=== PATIENT | male | born 1995 ===

== ENCOUNTER 2017-04-20 17:09 | Emergency (ER) | payer OTHER ==
[2017-04-20] MEDS ORDERED: Sodium Chloride 0.9% 1,000 ML IV STA ×2 (17:21→19:19)
[2017-04-20 17:49] LABS: BASO # 0.1 K/uL (0.0-0.2); BASO % 0.4 % (0.0-2.0); EOS # 0.1 K/uL (0.0-0.7); EOS % 0.5 % (0.0-4.0); HEMOGLOBIN 17.8 g/dL (12.0-18.0); LYMPH # 2.8 K/uL (1.0-4.3); LYMPH % 15.5 % (20.0-40.0); MEAN CELL VOLUME 86.7 fl (80.0-94.0); MEAN CORPUSCULAR HEMOGLOBIN 29.4 pg (27.0-31.0); MEAN CORPUSCULAR HGB CONC 33.9 g/dL (33.0-37.0); MONO # 1.3 K/uL (0.0-0.8); MONO % 7.5 % (0.0-10.0); NEUT # 13.7 K/uL (1.8-7.0); NEUT % 76.1 % (50.0-75.0); NRBC % 1.1 % (0.0-0.0); RBC 6.08 Mil/uL (4.40-5.90); RED CELL DISTRIBUTION WIDTH 13.3 % (11.5-14.5); WHITE BLOOD COUNT 17.9 K/uL (4.8-10.8)
[2017-04-20 18:19] LABS: CALCIUM 10.8 mg/dL (8.4-10.2); GFR AFRICAN-AMERICAN 33; GFR NON-AFRICAN AMERICAN 27
[2017-04-20 18:34] LABS: ALB/GLOB RATIO 1.2 (1.0-2.1); ALBUMIN 5.7 g/dL (3.5-5.0); ALT/SGPT 44 U/L (21-72); AST/SGOT 47 U/L (17-59); BLOOD UREA NITROGEN 39 mg/dl (9-20)
--- NOTE | 2017-04-20 18:55 | ED PDOC ---
HPI: Psych/Substance Abuse Time Seen by Provider: 04/20/17 17:21 Chief Complaint (Nursing): Substance Abuse Chief Complaint (Provider): hes withdrawing from heroin History Per: Patient, Family, [employer] Sales Engineer History/Exam Limitations: no limitations Onset/Duration Of Symptoms: Days (4), Gradual Current Symptoms Are (Timing): Still Present Modifying Factor(s): Narcotics, Cocaine Severity: Severe Associated Symptoms: Anxiety. denies: Agitation, Depression, Paranoia, Suicidal Thoughts Additional Complaint(s): 21yo male arrives with brother who states patient is a heroin addict who recently returned from [facility] where he was attending to family matters for 4 months and experiences relapse in heroin addiction. Brother thinks also using cocaine. Been in [place], last heroin use 5 days ago. Experiencing significant vomiting, restlessness, body aches. Denies suicidal thoughts or hallucinations. No alcohol abuse. Past Medical History Reviewed: Historical Data, Nursing Documentation, Vital Signs Vital Signs: Last Vital Signs Temp 98 F 04/20/17 17:12 Pulse 77 04/20/17 18:48 Resp 16 04/20/17 18:48 BP 145/102 H 04/20/17 18:48 Pulse Ox 99 04/20/17 18:48 - Medical History PMH: Denies: Chronic Kidney Disease Other PMH: substance abuse - Family History Family History: States: Unknown Family Hx - Social History Current smoker - smoking cessation education provided: Yes Alcohol: None Drugs: Cocaine, Opiates - Immunization History Hx Tetanus Toxoid Vaccination: No Hx Influenza Vaccination: No Hx Pneumococcal Vaccination: No - Home Medications Home Medications: Ambulatory Orders Medication Instructions Recorded DiphenhydrAMINE [Benadryl] 25 mg PO Q4H PRN #30 cap 09/10/16 Ibuprofen [Advil] 400 mg PO Q6H PRN 09/10/16 Ibuprofen [Motrin] 600 mg PO Q8 #30 tab 09/10/16 Loperamide [Imodium] 2 mg PO PRN PRN #10 cap 09/10/16 Ondansetron ODT [Zofran ODT] 1 odt PO BID PRN #6 odt 09/10/16 Ondansetron ODT [Zofran ODT] 4 mg PO QID PRN #20 odt 09/11/16 - Allergies Allergies/Adverse Reactions: Allergies Allergy/AdvReac Type Severity Reaction Status Date / Time No Known Allergies Allergy Verified 09/10/16 23:44 Review of Systems Constitutional: Negative for: Fever, Chills ENT: Negative for: Throat Pain, Throat Swelling Respiratory: Negative for: Cough, Shortness of Breath Gastrointestinal: Positive for: Nausea, Vomiting, Diarrhea. Negative for: Abdominal Pain Genitourinary Male: Negative for: Dysuria Musculoskeletal: Negative for: Neck Pain Skin: Negative for: Rash, Lesions, Jaundice Neurological: Positive for: Headache, Dizziness. Negative for: Weakness, Numbness Psych: Positive for: Anxiety. Negative for: Psychosis, Suicidal ideation Physical Exam - Reviewed Nursing Documentation Reviewed: Yes Vital Signs Reviewed: Yes - Physical Exam Appears: Positive for: Well, Non-toxic, Uncomfortable (+vomiting) Head Exam: Positive for: ATRAUMATIC, NORMAL INSPECTION, NORMOCEPHALIC Skin: Positive for: Normal Color, Warm, DRY Eye Exam: Positive for: EOMI, Normal appearance, PERRL ENT: Positive for: Normal ENT Inspection Neck: Positive for: Normal, Painless ROM Cardiovascular/Chest: Positive for: Regular Rate, Rhythm Respiratory: Positive for: CNT, Normal Breath Sounds Gastrointestinal/Abdominal: Positive for: Normal Exam, Bowel Sounds, Soft. Negative for: Tenderness Back: Positive for: Normal Inspection Extremity: Positive for: Normal ROM, Other (no erythema or evidence cellulitic track christie) Neurologic/Psych: Positive for: Alert, Oriented. 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 Labs ordered IVF bolus, zofran and clonidine ordered labs reviewed, reveal elevated WBC and elevated renal indices c/w dehydration and acute renal failure To admit hospitalist given need for IVF and trending of kidney function Disposition - Clinical Impression Clinical Impression: Opioid withdrawal, Acute renal failure, Dehydration - Patient ED Disposition Is Patient to be Admitted: Yes Counseled Patient/Family Regarding: Studies Performed, Diagnosis - Disposition Forms: Thermalin Diabetes (Estonian) - Pt Status Changed To: Hospital Disposition Of: Observation - POA Present On Arrival: None
[2017-04-20] MEDS ORDERED: Morphine 4 MG/ML VIAL ONE (19:15)
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
[2017-04-20] MEDS ORDERED: Sodium Chloride 0.45% 1,000 ML IV SCH (21:00)
[2017-04-20 22:00] VITALS: O2SAT 100
[2017-04-20 23:30] VITALS: BP 127/70; PULSE 68; RESP 20; TEMP 98.2
--- NOTE | 2017-04-21 09:23 | RAD ---
HISTORY: ro infiltrate COMPARISON: No prior. FINDINGS: LUNGS: No active pulmonary disease. PLEURA: No significant pleural effusion identified, no pneumothorax apparent. CARDIOVASCULAR: Normal. OSSEOUS STRUCTURES: No significant abnormalities. VISUALIZED UPPER ABDOMEN: Normal. OTHER FINDINGS: None. IMPRESSION: No acute cardiopulmonary disease appreciated.
--- NOTE | 2017-04-22 11:21 | CARD ---
APPROVED REPORT EKG Measurement Heart [id number] MA [id number] <Conclusion> Sinus bradycardia with sinus arrhythmia Otherwise normal ECG
== END 2017-04-20 23:00 | disposition home or self-care (01) ==
LOC: H.ER 17:09 → H.ERHOLD 19:19 → UNDOADMIN 19:19 → H.ER 23:00
DX: F11.23 Opioid dependence with withdrawal (principal); N17.9 Acute kidney failure, unspecified
CPT/HCPCS: 71045; 80053; 80320; 82550; 85025; 93005; 96360; 99284; J2270; J2405; J7040

== ENCOUNTER 2017-04-21 21:30 | Emergency (ER) | payer OTHER ==
[2017-04-21 22:02] VITALS: BP 148/90; PULSE 84; RESP 18; TEMP 98.4; O2SAT 99
[2017-04-21] MEDS ORDERED: Sodium Chloride 0.9% 1,000 ML IV STA (22:50)
[2017-04-21 23:25] LABS: BASO % 0.2 % (0.0-2.0); EOS % 0.2 % (0.0-4.0); HEMOGLOBIN 14.5 g/dL (12.0-18.0); LYMPH # 3.9 K/uL (1.0-4.3); LYMPH % 30.6 % (20.0-40.0); MEAN CELL VOLUME 86.6 fl (80.0-94.0); MEAN CORPUSCULAR HEMOGLOBIN 29.2 pg (27.0-31.0); MEAN CORPUSCULAR HGB CONC 33.8 g/dL (33.0-37.0); MEAN PLATELET VOLUME 8.3 fl (7.2-11.7); MONO % 7.8 % (0.0-10.0); NEUT # 7.9 K/uL (1.8-7.0); NEUT % 61.2 % (50.0-75.0); NRBC % 0.1 % (0.0-0.0); RBC 4.95 Mil/uL (4.40-5.90); RED CELL DISTRIBUTION WIDTH 12.9 % (11.5-14.5); WHITE BLOOD COUNT 12.8 K/uL (4.8-10.8)
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
[2017-04-21 23:46] LABS: ALB/GLOB RATIO 1.4 (1.0-2.1); ALBUMIN 4.4 g/dL (3.5-5.0); ALT/SGPT 48 U/L (21-72); AST/SGOT 28 U/L (17-59); BLOOD UREA NITROGEN 14 mg/dl (9-20); CALCIUM 9.5 mg/dL (8.4-10.2); GFR AFRICAN-AMERICAN > 60; GFR NON-AFRICAN AMERICAN > 60; LIPASE 320 U/L (23-300)
[2017-04-22] MEDS ORDERED: Potassium Chloride 20 mEq ER Tab PO ONE (00:31)
[2017-04-22] MEDS: Potassium CL 10 MEQ/50 ML 50 ML IVPB SCH ×2 (00:41→01:48)
[2017-04-22] MEDS ORDERED: Potassium CL 10 MEQ/50 ML 50 ML ONE (01:32)
== END 2017-04-22 03:46 | disposition home or self-care (01) ==
LOC: H.ER 21:30
DX: F11.23 Opioid dependence with withdrawal (principal)
CPT/HCPCS: 80053; 82550; 83690; 83735; 85025; 96374; 96375; 99283; J2405; J3480; J7040

== ENCOUNTER 2017-04-28 22:44 | Emergency (ER) | payer SELFPAY ==
[2017-04-28 23:14] VITALS: BP 136/67; PULSE 87; RESP 16; TEMP 99.6; O2SAT 100
== END 2017-04-29 00:05 | disposition left against medical advice (07) ==
LOC: H.ER 22:44
DX: Z02.89 Encounter for other administrative examinations (principal)

== ENCOUNTER 2017-10-21 09:23 | Emergency (ER) | payer OTHER ==
[2017-10-21 09:31] VITALS: BMI 25.0
[2017-10-21 09:32] VITALS: TEMP 98.3
[2017-10-21 09:37] VITALS: O2SAT 99
[2017-10-21] MEDS: Sodium Chloride 0.9% 1,000 ML IV STA (10:38)
[2017-10-21 11:02] LABS: BASO % 0.1 % (0.0-2.0); HEMOGLOBIN 15.6 g/dL (12.0-18.0); LYMPH # 2.4 K/uL (1.0-4.3); MEAN CELL VOLUME 87.6 fl (80.0-94.0); MEAN CORPUSCULAR HEMOGLOBIN 29.9 pg (27.0-31.0); MEAN CORPUSCULAR HGB CONC 34.2 g/dL (33.0-37.0); MEAN PLATELET VOLUME 8.3 fl (7.2-11.7); MONO # 0.6 K/uL (0.0-0.8); MONO % 4.3 % (0.0-10.0); NEUT # 12.1 K/uL (1.8-7.0); NEUT % 79.6 % (50.0-75.0); NRBC % 0.1 % (0.0-0.0); RBC 5.23 Mil/uL (4.40-5.90); RED CELL DISTRIBUTION WIDTH 13.7 % (11.5-14.5); WHITE BLOOD COUNT 15.3 K/uL (4.8-10.8)
[2017-10-21 11:08] LABS: CALCIUM 10.8 mg/dL (8.4-10.2); GFR AFRICAN-AMERICAN > 60; GFR NON-AFRICAN AMERICAN > 60
[2017-10-21 11:09] LABS: ALB/GLOB RATIO 1.1 (1.0-2.1); ALBUMIN 5.3 g/dL (3.5-5.0); ALT/SGPT 33 U/L (21-72); AST/SGOT 48 U/L (17-59); BLOOD UREA NITROGEN 13 mg/dl (9-20)
--- NOTE | 2017-10-21 11:55 | ED PDOC ---
HPI: Abdomen Time Seen by Provider: 10/21/17 09:54 Chief Complaint (Nursing): GI Problem Chief Complaint (Provider): GI Problem History Per: Patient History/Exam Limitations: no limitations Onset/Duration Of Symptoms: Days (4) Associated Symptoms: Diarrhea Additional Complaint(s): 22 years old male with history of heroin abuse presents to the ED with complaints of withdrawal symptoms from heroin onset 4 days. Patient reports experiencing body pain and diarrhea. PMD: non provided Against Medical Advice - AMA Patient Left Against Medical Advice: The patient declines admission to the hospital and wishes to leave the Emergency Department. This action is against my medical advice. This decision was made with informed refusal. The patient was told that admission to the hospital is necessary. Explanation of the reasons why were discussed. The risks of leaving were explained to the patient and include, but are not limited to, worsening of known or currently unknown conditions, permanent disability and from undiagnosed or untreated conditions. The patient has the capacity to make this informed decision and understands my explanation of the current medical problem and risks of leaving. The patient voluntarily accepts these risks and signed an AMA form documenting our conversation. The patient was given the opportunity to ask questions and reconsider. The patient was encouraged to return to the Emergency Department at any time for further care. 10/21/17 1121 Past Medical History Reviewed: Historical Data, Nursing Documentation, Vital Signs Vital Signs: Last Vital Signs Temp 98.3 F 10/21/17 09:35 Pulse 88 10/21/17 11:28 Resp 18 10/21/17 11:28 BP 128/69 10/21/17 11:28 Pulse Ox 99 10/21/17 12:00 - Medical History PMH: No Chronic Diseases Denies: Chronic Kidney Disease - Surgical History Surgical History: No Surg Hx - Family History Family History: States: Unknown Family Hx - Social History Current smoker - smoking cessation education provided: Yes (cigarettes) Alcohol: Social Drugs: Opiates (Heroin) - Immunization History Hx Tetanus Toxoid Vaccination: No Hx Influenza Vaccination: No Hx Pneumococcal Vaccination: No - Home Medications Home Medications: Ambulatory Orders Medication Instructions Recorded DiphenhydrAMINE [Benadryl] 25 mg PO Q4H PRN #30 cap 09/10/16 Ibuprofen [Advil] 400 mg PO Q6H PRN 09/10/16 Ibuprofen [Motrin] 600 mg PO Q8 #30 tab 09/10/16 Ondansetron ODT [Zofran ODT] 1 odt PO BID PRN #6 odt 09/10/16 Ondansetron ODT [Zofran ODT] 4 mg PO QID PRN #20 odt 09/11/16 Loperamide [Imodium] 2 mg PO PRN PRN #10 cap 04/22/17 Ondansetron ODT [Zofran ODT] 4 mg PO Q8 PRN #12 odt 04/22/17 cloNIDine 0.3 mg/24 hr 0.3 mg TD DAILY #7 tdm 04/22/17 [catapres-TTS3 0.3 mg/24 hr] - Allergies Allergies/Adverse Reactions: Allergies Allergy/AdvReac Type Severity Reaction Status Date / Time No Known Allergies Allergy Verified 09/10/16 23:44 Review of Systems ROS Statement: Except As Marked, All Systems Reviewed And Found Negative Gastrointestinal: Positive for: Diarrhea Physical Exam - Reviewed Nursing Documentation Reviewed: Yes Vital Signs Reviewed: Yes - Physical Exam Appears: Positive for: Non-toxic, No Acute Distress Head Exam: Positive for: ATRAUMATIC, NORMOCEPHALIC Skin: Positive for: Normal Color, Warm, Dry Eye Exam: Positive for: Normal appearance, EOMI, PERRL Neck: Positive for: Normal, Painless ROM, Supple Cardiovascular/Chest: Positive for: Regular Rate, Rhythm, Tachycardia. Negative for: Murmur Respiratory: Positive for: Normal Breath Sounds. Negative for: Respiratory Distress Gastrointestinal/Abdominal: Positive for: Normal Exam, Soft. Negative for: Tenderness Back: Positive for: Normal Inspection Extremity: Positive for: Normal ROM. Negative for: Tenderness, Pedal Edema Neurologic/Psych: Positive for: Alert, Oriented (x3) - Laboratory Results Result Diagrams: 10/21/17 10:40 10/21/17 10:40 - ECG O2 Sat by Pulse Oximetry: 99 (RA) Pulse Ox Interpretation: Normal Medical Decision Making Medical Decision Making: Time: 1019 Initial Plan: --Alcohol Serum --CMP --Drug Screen --Urine dipstick --CBC --NaCl 1,000 ml --Urinalysis 1121 Patient is leaving AMA. ----- Scribe Attestation: Documented by Carmela Lerma, acting as a scribe for Nikki Kwon MD. Provider Scribe Attestation: All medical record entries made by the Scribe were at my direction and personally dictated by me. I have reviewed the chart and agree that the record accurately reflects my personal performance of the history, physical exam, medical decision making, and the department course for this patient. I have also personally directed, reviewed, and agree with the discharge instructions and disposition. Disposition - Clinical Impression Clinical Impression: Opioid withdrawal - Disposition Disposition: Against Medical Advice Disposition Time: 11:25 Condition: UNKNOWN Forms: [employer]ely [employer] (Syriac)
[2017-10-21 12:29] VITALS: BP 128/69; PULSE 88; RESP 18
== END 2017-10-21 11:30 | disposition left against medical advice (07) ==
LOC: H.ER 09:23
DX: F11.23 Opioid dependence with withdrawal (principal); R19.7 Diarrhea, unspecified; F17.210 Nicotine dependence, cigarettes, uncomplicated
CPT/HCPCS: 80053; 80320; 82948; 85025; 99283; J7030

== ENCOUNTER 2017-10-25 14:43 | Emergency (ER) | payer OTHER ==
[2017-10-25 14:55] VITALS: RESP 18; TEMP 98; O2SAT 98
[2017-10-25 14:56] VITALS: BMI 24.2
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
[2017-10-25] MEDS ORDERED: Sodium Chloride 0.9% 1,000 ML IV STA (16:15)
[2017-10-25 16:39] LABS: BASO % 0.4 % (0.0-2.0); EOS % 0.3 % (0.0-4.0); HEMOGLOBIN 14.8 g/dL (12.0-18.0); LYMPH # 3.3 K/uL (1.0-4.3); MEAN CELL VOLUME 85.7 fl (80.0-94.0); MEAN CORPUSCULAR HEMOGLOBIN 30.1 pg (27.0-31.0); MEAN CORPUSCULAR HGB CONC 35.1 g/dL (33.0-37.0); MEAN PLATELET VOLUME 8.3 fl (7.2-11.7); MONO # 0.8 K/uL (0.0-0.8); MONO % 7.7 % (0.0-10.0); NEUT # 6.8 K/uL (1.8-7.0); NEUT % 61.6 % (50.0-75.0); NRBC % 0.1 % (0.0-0.0); RBC 4.9 Mil/uL (4.40-5.90); RED CELL DISTRIBUTION WIDTH 13.2 % (11.5-14.5); WHITE BLOOD COUNT 11.1 K/uL (4.8-10.8)
[2017-10-25 16:46] LABS: INR 1.1 (0.9-1.2); PARTIAL THROMBOPLASTIN TIME 25.1 Seconds (25.6-37.1)
[2017-10-25 16:51] LABS: GRANULAR CAST 5 /lpf (0-1); SQUAMOUS EPITHIAL < 1 /hpf (0-5); URINE BACTERIA RARE (<OCC); URINE BILIRUBIN NEGATIVE (NEGATIVE); URINE BLOOD NEGATIVE (NEGATIVE); URINE CLARITY CLOUDY (Clear); URINE COLOR YELLOW (YELLOW); URINE GLUCOSE (UA) NEG (Normal); URINE LEUKOCYTE ESTERASE NEG Leu/uL (Negative); URINE PROTEIN 30 mg/dL (NEGATIVE); URINE UROBILINOGEN 0.2-1.0 mg/dL (0.2-1.0)
[2017-10-25 16:54] LABS: ALB/GLOB RATIO 1.3 (1.0-2.1); ALBUMIN 4.7 g/dL (3.5-5.0); ALT/SGPT 64 U/L (21-72); AST/SGOT 37 U/L (17-59); BLOOD UREA NITROGEN 16 mg/dl (9-20); CALCIUM 9.6 mg/dL (8.4-10.2); GFR NON-AFRICAN AMERICAN > 60; LIPASE 286 U/L (23-300)
[2017-10-25] MEDS ORDERED: Potassium Chloride 20 mEq ER Tab PO STA (16:56)
[2017-10-25] MEDS ORDERED: Iohexol 300 100 ML IJ ONE (17:05)
[2017-10-25] MEDS ORDERED: Sodium Chloride 0.9% 0 ML IV ONE (17:06)
[2017-10-25 17:26] LABS: OPIATES, UR NEGATIVE (NEGATIVE)
[2017-10-25 17:28] LABS: BARBITURATES, UR NEGATIVE (NEGATIVE); BENZODIAZEPINES, UR POSITIVE (NEGATIVE); PHENCYCLIDINE, UR NEGATIVE (NEGATIVE)
[2017-10-25 18:11] VITALS: BP 140/90; PULSE 80
== END 2017-10-25 17:30 | disposition left against medical advice (07) ==
LOC: H.ER 14:43
DX: R10.9 Unspecified abdominal pain (principal)

== ENCOUNTER 2017-10-26 04:34 | Emergency (ER) | payer OTHER ==
[2017-10-26 04:35] VITALS: BMI 24.2
[2017-10-26] MEDS ORDERED: Sodium Chloride 0.9% 1,000 ML IV STA (05:22)
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
[2017-10-26 06:07] LABS: BASO % 0.2 % (0.0-2.0); EOS % 0.4 % (0.0-4.0); LYMPH # 3.2 K/uL (1.0-4.3); LYMPH % 26.9 % (20.0-40.0); MEAN CELL VOLUME 85.7 fl (80.0-94.0); MEAN CORPUSCULAR HEMOGLOBIN 29.9 pg (27.0-31.0); MEAN CORPUSCULAR HGB CONC 34.8 g/dL (33.0-37.0); MEAN PLATELET VOLUME 8.6 fl (7.2-11.7); MONO # 0.9 K/uL (0.0-0.8); MONO % 7.4 % (0.0-10.0); NEUT # 7.6 K/uL (1.8-7.0); NEUT % 65.1 % (50.0-75.0); RBC 4.68 Mil/uL (4.40-5.90); RED CELL DISTRIBUTION WIDTH 12.7 % (11.5-14.5); WHITE BLOOD COUNT 11.7 K/uL (4.8-10.8)
[2017-10-26 06:16] LABS: ALB/GLOB RATIO 1.3 (1.0-2.1); ALBUMIN 4.4 g/dL (3.5-5.0); ALT/SGPT 55 U/L (21-72); AST/SGOT 37 U/L (17-59); BLOOD UREA NITROGEN 15 mg/dl (9-20); CALCIUM 9.4 mg/dL (8.4-10.2); GFR AFRICAN-AMERICAN > 60; GFR NON-AFRICAN AMERICAN > 60; LIPASE 291 U/L (23-300)
[2017-10-26] MEDS ORDERED: Potassium Chloride 20 mEq ER Tab PO ONE (06:18)
[2017-10-26 06:21] LABS: URINE BILIRUBIN NEGATIVE (NEGATIVE); URINE BLOOD NEGATIVE (NEGATIVE); URINE CLARITY CLOUDY (Clear); URINE COLOR YELLOW (YELLOW); URINE GLUCOSE (UA) NEG (Normal); URINE LEUKOCYTE ESTERASE NEG Leu/uL (Negative); URINE PROTEIN 30 mg/dL (NEGATIVE)
[2017-10-26 06:38] LABS: OPIATES, UR NEGATIVE (NEGATIVE)
[2017-10-26 06:48] VITALS: BP 133/86; PULSE 88; RESP 19; TEMP 98.2
[2017-10-26 06:58] VITALS: O2SAT 97
[2017-10-26 07:03] LABS: BARBITURATES, UR NEGATIVE (NEGATIVE); BENZODIAZEPINES, UR POSITIVE (NEGATIVE); PHENCYCLIDINE, UR NEGATIVE (NEGATIVE)
== END 2017-10-26 06:48 | disposition home or self-care (01) ==
LOC: H.ER 04:34
DX: F11.23 Opioid dependence with withdrawal (principal); F17.200 Nicotine dependence, unspecified, uncomplicated
CPT/HCPCS: 80053; 80324; 80345; 80346; 80349; 80353; 80358; 80361; 81003; 83690; 83992; 85025; 96374; 96375; 99283; J2405; J7030

== ENCOUNTER 2017-10-27 03:47 | Emergency (ER) | payer OTHER ==
[2017-10-27 03:47] VITALS: BMI 24.2
[2017-10-27] MEDS ORDERED: Iohexol 240 (50 ml) PO ONE (04:39)
[2017-10-27] MEDS ORDERED: Iohexol 240 (50 ml) ONE (05:02)
[2017-10-27 05:07] LABS: BASO % 0.4 % (0.0-2.0); EOS # 0.1 K/uL (0.0-0.7); EOS % 0.8 % (0.0-4.0); HEMOGLOBIN 13.8 g/dL (12.0-18.0); LYMPH # 3.2 K/uL (1.0-4.3); LYMPH % 30.7 % (20.0-40.0); MEAN CELL VOLUME 86.8 fl (80.0-94.0); MEAN CORPUSCULAR HEMOGLOBIN 30.3 pg (27.0-31.0); MEAN CORPUSCULAR HGB CONC 34.9 g/dL (33.0-37.0); MEAN PLATELET VOLUME 8.7 fl (7.2-11.7); MONO # 0.7 K/uL (0.0-0.8); MONO % 7.1 % (0.0-10.0); NEUT # 6.4 K/uL (1.8-7.0); RBC 4.56 Mil/uL (4.40-5.90); RED CELL DISTRIBUTION WIDTH 12.9 % (11.5-14.5); WHITE BLOOD COUNT 10.5 K/uL (4.8-10.8)
[2017-10-27 05:14] LABS: ALB/GLOB RATIO 1.3 (1.0-2.1); ALBUMIN 4.2 g/dL (3.5-5.0); ALT/SGPT 49 U/L (21-72); AST/SGOT 26 U/L (17-59); BLOOD UREA NITROGEN 7 mg/dl (9-20); CALCIUM 9.4 mg/dL (8.4-10.2); GFR AFRICAN-AMERICAN > 60; GFR NON-AFRICAN AMERICAN > 60; LIPASE 318 U/L (23-300)
[2017-10-27 05:30] LABS: SQUAMOUS EPITHIAL < 1 /hpf (0-5); URINE BACTERIA OCC (<OCC); URINE BILIRUBIN NEGATIVE (NEGATIVE); URINE BLOOD NEGATIVE (NEGATIVE); URINE CLARITY CLOUDY (Clear); URINE COLOR AMBER (YELLOW); URINE GLUCOSE (UA) NEG (Normal); URINE LEUKOCYTE ESTERASE NEG Leu/uL (Negative); URINE PROTEIN 30 mg/dL (NEGATIVE)
[2017-10-27 05:45] LABS: OPIATES, UR NEGATIVE (NEGATIVE)
[2017-10-27 05:48] LABS: BARBITURATES, UR NEGATIVE (NEGATIVE); BENZODIAZEPINES, UR POSITIVE (NEGATIVE); PHENCYCLIDINE, UR NEGATIVE (NEGATIVE)
[2017-10-27 06:01] VITALS: BP 132/92; PULSE 88; RESP 18; TEMP 98.6; O2SAT 100
--- NOTE | 2017-10-27 06:14 | ED PDOC ---
HPI: Abdomen Time Seen by Provider: 10/27/17 04:19 Chief Complaint (Nursing): Abdominal Pain Chief Complaint (Provider): Abdominal Pain History Per: Patient History/Exam Limitations: no limitations Additional Complaint(s): Patient is a 22 y/o male with a history of heroin abuse who presents to the ED complaining of diffuse abdominal pain with more than 10 episodes of associated vomiting and watery diarrhea. Patient admits to using heroin 5 days ago in [facility]. Of note this is the patient's 3rd visit for the same complain. He denies any fever chills or urinary symptoms. Past Medical History Reviewed: Historical Data, Nursing Documentation, Vital Signs Vital Signs: Last Vital Signs Temp 98.6 F 10/27/17 06:00 Pulse 88 10/27/17 06:00 Resp 18 10/27/17 06:00 BP 132/92 H 10/27/17 06:00 Pulse Ox 100 10/27/17 06:18 - Medical History PMH: Denies: Chronic Kidney Disease - Surgical History Surgical History: No Surg Hx - Family History Family History: States: Unknown Family Hx - Social History Drugs: Opiates (heroin) - Immunization History Hx Tetanus Toxoid Vaccination: No Hx Influenza Vaccination: No Hx Pneumococcal Vaccination: No - Home Medications Home Medications: Ambulatory Orders Medication Instructions Recorded DiphenhydrAMINE [Benadryl] 25 mg PO Q4H PRN #30 cap 09/10/16 Ibuprofen [Advil] 400 mg PO Q6H PRN 09/10/16 Ibuprofen [Motrin] 600 mg PO Q8 #30 tab 09/10/16 Ondansetron ODT [Zofran ODT] 1 odt PO BID PRN #6 odt 09/10/16 Ondansetron ODT [Zofran ODT] 4 mg PO QID PRN #20 odt 09/11/16 Loperamide [Imodium] 2 mg PO PRN PRN #10 cap 04/22/17 Ondansetron ODT [Zofran ODT] 4 mg PO Q8 PRN #12 odt 04/22/17 cloNIDine 0.3 mg/24 hr 0.3 mg TD DAILY #7 tdm 04/22/17 [catapres-TTS3 0.3 mg/24 hr] Famotidine [Pepcid] 20 mg PO BID #20 tab 10/26/17 Ondansetron ODT [Zofran ODT] 4 mg PO Q8 PRN #12 odt 10/26/17 - Allergies Allergies/Adverse Reactions: Allergies Allergy/AdvReac Type Severity Reaction Status Date / Time No Known Allergies Allergy Verified 10/27/17 04:01 Review of Systems Constitutional: Negative for: Fever, Chills Gastrointestinal: Positive for: Vomiting, Abdominal Pain, Diarrhea Genitourinary Male: Negative for: Dysuria, Frequency, Incontinence Physical Exam - Reviewed Nursing Documentation Reviewed: Yes Vital Signs Reviewed: Yes - Physical Exam Appears: Positive for: Non-toxic, No Acute Distress Head Exam: Positive for: ATRAUMATIC, NORMOCEPHALIC Skin: Positive for: Normal Color, Warm, Dry Eye Exam: Positive for: EOMI, Normal appearance, PERRL Neck: Positive for: Normal, Painless ROM, Supple Cardiovascular/Chest: Positive for: Regular Rate, Rhythm. Negative for: Murmur Respiratory: Positive for: Normal Breath Sounds. Negative for: Respiratory Distress Gastrointestinal/Abdominal: Positive for: Normal Exam, Soft, Tenderness (diffuse ; minimal tenderness to palpation). Negative for: Guarding, Rebound Back: Positive for: Normal Inspection. Negative for: L CVA Tenderness, R CVA Tenderness Extremity: Positive for: Normal ROM Neurologic/Psych: Positive for: Alert, Oriented. Negative for: Motor/Sensory Deficits - Laboratory Results Result Diagrams: 10/27/17 04:58 10/27/17 04:58 - ECG O2 Sat by Pulse Oximetry: 100 (RA) Pulse Ox Interpretation: Normal Medical Decision Making Medical Decision Making: Time: A/P: 22 y/o with history of heroin abuse presents with abdominal pain. Concerned for possible opioid withdrawal syndrome vs gastroenteritis vs colitis vs diverticulitis. Patient appear more comfortable today than yesterday. --CT Abd&Pelvis --CMP --Drugs screen --Lipase --CBC w/differential --Omnipaque 50 ml PO --Pepcid 20 mg IVP --Zofran 4 mg IVP --Urinalysis [address], decided to AMA from hospital. Risks of this were discussed repeatedly using Welsh speaking tech Porfirio Rg. Patient understood risks including worsening infection, sepsis, permanent disability, or even . Patient is well appearing, alert, oriented, able to make decisions for himself. ----- Scribe Attestation: Documented by Jose Yang, acting as a scribe for Kannan Nobles MD. Provider Scribe Attestation: All medical record entries made by the Scribe were at my direction and personally dictated by me. I have reviewed the chart and agree that the record accurately reflects my personal performance of the history, physical exam, medical decision making, and the department course for this patient. I have also personally directed, reviewed, and agree with the discharge instructions and disposition. Disposition - Clinical Impression Clinical Impression: Abdominal discomfort - Disposition Referrals: [facility] [Outside] Disposition: Against Medical Advice Disposition Time: 06:00 Condition: STABLE Instructions: Nausea and Vomiting, Adult, Stomach Ache and Stomach Upset, Leaving Against Medical Advice Forms: [employer] (Citizen Of [place]) Print Language: TAIWANESE
== END 2017-10-27 06:00 | disposition home or self-care (01) ==
LOC: H.ER 03:47
DX: R10.9 Unspecified abdominal pain (principal)
CPT/HCPCS: 80053; 80324; 80345; 80346; 80349; 80353; 80358; 80361; 81003; 83690; 83992; 85025; 96374; 96375; 99284; J2405; Q9966

== ENCOUNTER 2018-05-05 13:45 | Emergency (ER) | payer OTHER ==
[2018-05-05 13:45] VITALS: BMI 24.2
[2018-05-05 14:02] VITALS: TEMP 98.8
[2018-05-05] MEDS ORDERED: Sodium Chloride 0.9% 1,000 ML IV SCH (14:45)
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
[2018-05-05 15:20] LABS: BASO % 0.1 % (0.0-2.0); HEMOGLOBIN 14.7 g/dL (12.0-18.0); LYMPH # 1.7 K/uL (1.0-4.3); LYMPH % 15.1 % (20.0-40.0); MEAN CORPUSCULAR HEMOGLOBIN 29.1 pg (27.0-31.0); MEAN CORPUSCULAR HGB CONC 34.2 g/dL (33.0-37.0); MEAN PLATELET VOLUME 8.1 fl (7.2-11.7); MONO # 0.3 K/uL (0.0-0.8); MONO % 2.5 % (0.0-10.0); NEUT # 9.1 K/uL (1.8-7.0); NEUT % 82.3 % (50.0-75.0); NRBC % 0.2 % (0.0-0.0); RBC 5.05 Mil/uL (4.40-5.90); RED CELL DISTRIBUTION WIDTH 13.1 % (11.5-14.5); WHITE BLOOD COUNT 11.1 K/uL (4.8-10.8)
[2018-05-05 15:31] LABS: ALB/GLOB RATIO 1.2 (1.0-2.1); ALBUMIN 4.9 g/dL (3.5-5.0); ALT/SGPT 34 U/L (21-72); AST/SGOT 32 U/L (17-59); BLOOD UREA NITROGEN 8 mg/dl (9-20); GFR NON-AFRICAN AMERICAN > 60
[2018-05-05] MEDS ORDERED: Potassium Chloride 20 mEq ER Tab PO STA (15:45)
[2018-05-05] MEDS ORDERED: Potassium Chloride 20 mEq ER Tab PO ONE (16:02)
[2018-05-05 16:06] VITALS: BP 156/95; PULSE 85; RESP 18
[2018-05-05 16:11] LABS: BARBITURATES, UR NEGATIVE (NEGATIVE); BENZODIAZEPINES, UR NEGATIVE (NEGATIVE); OPIATES, UR POSITIVE (NEGATIVE); PHENCYCLIDINE, UR NEGATIVE (NEGATIVE)
[2018-05-17 05:57] VITALS: O2SAT 98
== END 2018-05-05 16:10 | disposition home or self-care (01) ==
LOC: H.ER 13:45
DX: F11.23 Opioid dependence with withdrawal (principal); F17.200 Nicotine dependence, unspecified, uncomplicated; Z79.899 Other long term (current) drug therapy
CPT/HCPCS: 80053; 85025; 96361; 96374; 99283; G0480; J2405; J7030

== ENCOUNTER 2018-05-07 14:51 | Emergency (ER) | payer SELFPAY ==
[2018-05-07 14:52] VITALS: BMI 24.2
[2018-05-07 15:00] VITALS: O2SAT 97
[2018-05-07] MEDS ORDERED: Sodium Chloride 0.9% 1,000 ML IV STA (15:30)
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
[2018-05-07 19:31] VITALS: BP 145/89; PULSE 85; RESP 22; TEMP 98.2
== END 2018-05-07 15:53 | disposition home or self-care (01) ==
LOC: H.ER 14:51
DX: F11.23 Opioid dependence with withdrawal (principal); F17.200 Nicotine dependence, unspecified, uncomplicated